=== PATIENT | female | born 1950 | race Caucasian/White ===

== ENCOUNTER 2019-10-05 23:53 | Emergency (ER) | payer OTHER ==
[~2019-10-05] VITALS: Ht 170.2 cm; Wt 76.2 kg
[2019-10-05 23:57] VITALS: BP_SYST 118
--- NOTE | 2019-10-05 23:57 | NUR ---
Patient to ER bed 2 to gown for evaluation. Side rails up. Report given to KRISTAL SWANN.
--- NOTE | 2019-10-05 23:58 | NUR ---
Per EMS reported, started IV 20 G right hand at the scence.
--- NOTE | 2019-10-05 23:59 | NUR ---
Patient BIB EMS. C/O fell and left hip pain x today. Patient states "fell in the garage, no LOC, felt her hip pop out from the socket, seen by PMD for UTI and treated with Macrobid" Hx HTN, Neuropathy. A/O,X4, left hip pain, pain rate 9/10, no radiate pain, place on classroom monitor.
[2019-10-06] MEDS ORDERED: NITR-85 PO (00:12)
[2019-10-06] MEDS ORDERED: AMIT10TA6 PO (00:12)
[2019-10-06] MEDS ORDERED: NEU100 PO (00:12)
[2019-10-06] MEDS ORDERED: LOP600 PO (00:12)
[2019-10-06] MEDS ORDERED: ATEN50TA PO (00:12)
--- NOTE | 2019-10-06 00:12 | NUR ---
Medication reconciliation completed with information provided by patient. Any prior medication reconciliation on file was reviewed and corrected.
--- NOTE | 2019-10-06 00:40 | NUR ---
ER Dr. Aggarwal at bedside examining patient.
--- NOTE | 2019-10-06 00:55 | NUR ---
X- ray at bedside.
[2019-10-06 02:01] VITALS: BP_SYST 121
--- NOTE | 2019-10-06 02:01 | NUR ---
Patient given written and verbal discharge instructions and verbalizes understanding. ER MD discussed with patient the results and treatment provided. Patient in stable condition. ID arm band removed. IV catheter removed intact and dressing applied, no active bleeding. Rx of Ibuprofen given. Patient educated on pain management and to follow up with PMD. Pain Scale 2/10. Opportunity for questions provided and answered. Medication side effect fact sheet provided.
== END 2019-10-06 02:01 | disposition home or self-care (01) ==
LOC: SED 23:53
DX: S73.102A Unspecified sprain of left hip, initial encounter (principal); S70.02XA Contusion of left hip, initial encounter; I10 Essential (primary) hypertension; Z88.8 Allergy status to other drugs, medicaments and biological substances; Z79.899 Other long term (current) drug therapy; W18.39XA Other fall on same level, initial encounter; Y93.89 Activity, other specified; Y92.89 Other specified places as the place of occurrence of the external cause; Y99.8 Other external cause status
CPT/HCPCS: 72170-TC; 73502; 99284

== ENCOUNTER 2022-04-15 06:33 | Inpatient (IN) | payer OTHER ==
[~2022-04-15] VITALS: Ht 170.2 cm; Wt 63.0 kg
[~2022-04-15 06:33] MED LIST: AMIT10TA6 PO; ATEN50TA PO; LOP600 PO; NEU100 PO; NITR-85 PO
[2022-04-15 06:42] VITALS: BP_SYST 137
[2022-04-15] MEDS ORDERED: NS 500 ML IV ONE (06:45)
[2022-04-15] MEDS ORDERED: ONDANSETRON HCL 4 MG/2 ML VIAL IVP ONE (06:45)
[2022-04-15] MEDS ORDERED: DIPHTH,PERTUSS(ACELL),TET VAC 0.5 ML VIAL (Tdap) I.M. ONE (06:45)
[2022-04-15] MEDS ORDERED: MORPHINE 4 MG INJ. 4 MG/ML VIAL IVP ONE (06:45)
--- NOTE | 2022-04-15 06:49 | NUR ---
Patient to ER bed 5 to gown for evaluation. Side rails up. Report given to Jazmin.
--- NOTE | 2022-04-15 06:50 | NUR ---
X-Ray at bedside.
--- NOTE | 2022-04-15 06:56 | NUR ---
Pt to CT via [facility].
--- NOTE | 2022-04-15 07:00 | NUR ---
Pt returned from CT.
--- NOTE | 2022-04-15 07:03 | NUR ---
Pt ALEJANDRO SEAY from home lives with . Pt c/o falling at home and fell on her left side. She uses a cane to ambulate. States now her left hip is in pain. With no activity she states she has no pain but with activity pain is 10/10 non-radiating. No obvious deformity noted. Pt is A&Ox4. Skin intact. Pt has hx of HTN, Hypothyroidism, and Neuropathy. Allergic to Simvastatin. Pt has no chest pain and no sob. Denies n/v. VSS. Bed in lowest position.
--- NOTE | 2022-04-15 07:06 | NUR ---
Dr. Harrington at bedside examining pt.
--- NOTE | 2022-04-15 07:18 | NUR ---
Report given to Jayshree SWANN
[2022-04-15] MEDS ORDERED: ceFAZolin SODIUM 1 GM VIAL ONE (07:30)
[2022-04-15] MEDS ORDERED: fentaNYL CITRATE 250 MCG/5 ML AMP ONE (07:30)
[2022-04-15] MEDS ORDERED: METOCLOPRAMIDE HCL 10 MG/2 ML VIAL ONE (07:30)
[2022-04-15] MEDS ORDERED: ONDANSETRON HCL 4 MG/2 ML VIAL ONE ×2 (07:30→09:22)
[2022-04-15] MEDS ORDERED: MORPHINE SULFATE 10 MG/ML VIAL ONE (07:30)
[2022-04-15] MEDS ORDERED: MIDAZOLAM HCL 5 MG/ML VIAL (VERSED) IV ONE (07:30)
[2022-04-15] MEDS ORDERED: PROPOFOL 200MG/ 20ML VIAL (DIPRIVAN) IV ONE (07:30)
[2022-04-15] MEDS ORDERED: ePHEDrine sulfate 50 MG/ML VIAL ONE (07:30)
[2022-04-15] MEDS ORDERED: LR 1,000 ML IV.SOLN IV ONE (07:30)
--- NOTE | 2022-04-15 07:30 | NUR ---
RECEIVED PT FROM SHREE SUAZO. ASSUMED CARE.
--- NOTE | 2022-04-15 08:00 | NUR ---
# 22 gauge angiocath placed to LFA. Use of asceptic technique. Opsite placed over site. Blood return noted. Flushed with 10 cc of normal saline. No evidence of infiltration noted. Patient tolerated well.
--- NOTE | 2022-04-15 08:01 | NUR ---
LABS AND URINE OBTAINED.
[2022-04-15 08:51] LABS: BASOPHILS % (AUTO) 0.5 % (0.0-2.0); EOSINOPHILS # (AUTO) 0.1 K/uL (0.0-0.4); EOSINOPHILS % (AUTO) 0.9 % (0.0-4.0); HEMATOCRIT 41.1 % (36-48); HEMOGLOBIN 14.1 g/dL (12.0-16.0); LYMPHOCYTES # (AUTO) 1.6 K/uL (1.0-5.5); LYMPHOCYTES % (AUTO) 20.5 % (20.5-51.5); MEAN CORPUSCULAR HEMOGLOBIN 38 pg (27-31); MEAN CORPUSCULAR HGB CONC 34 % (32-36); MEAN CORPUSCULAR VOLUME 109 fL (79.0-98.0); MONOCYTES # (AUTO) 0.5 K/uL (0.0-1.0); NEUTROPHILS # (AUTO) 5.7 K/uL (1.8-7.7); NEUTROPHILS % (AUTO) 72.1 % (40.0-70.0); PLATELET COUNT (AUTO) 164 K/uL (130-430); RED BLOOD CELL COUNT(AUTO) 3.76 MIL/uL (4.2-6.2); RED CELL DISTRIBUTION WIDTH 13.9 % (9.0-15.0); WHITE BLOOD COUNT (AUTO) 7.8 K/uL (4.8-10.8)
[2022-04-15 09:05] LABS: ANION GAP 12 (5-15); CALCIUM 9.4 mg/dL (8.4-11.0); CHLORIDE 105 mmol/L (98-107); CREATININE 0.64 mg/dL (0.55-1.30); GLUCOSE 66 mg/dL (70-99); UREA NITROGEN, BLOOD 9 mg/dL (8-21)
[2022-04-15 09:14] LABS: ALANINE AMINOTRANSFERASE 24 U/L (12-78); ALBUMIN 3.8 g/dL (3.4-4.8); ASPARTATE AMINOTRANSFERASE 42 U/L (10-37); TOTAL BILIRUBIN 0.6 mg/dL (0.0-1.0)
[2022-04-15] MEDS ORDERED: MORPHINE 4 MG INJ. 4 MG/ML VIAL ONE (09:23)
--- NOTE | 2022-04-15 09:24 | NUR ---
MORPHINE 4MG IVP GIVEN FOR L HIP PAIN 12/21, ZOFRAN 4MG IVP GIVEN FOR NAUSEA, NS 1000ML BOLUS INITIATED.
--- NOTE | 2022-04-15 10:44 | NUR ---
CONSULTATION PAGED/CALLED Reason for Consultation: [] cardiac clearance Person Who was Notified: [] Dr Moulton Building And Construction Manager Specialty: [] Dr Moulton Ordering Physician: [] Dr Cano
[2022-04-15] MEDS ORDERED: AMIT10TA6 PO (11:21)
[2022-04-15] MEDS ORDERED: PILO15DR35 LEFT EYE (11:21)
[2022-04-15] MEDS ORDERED: NEU300 PO (11:21)
[2022-04-15] MEDS ORDERED: ATEN50TA PO (11:21)
[2022-04-15] MEDS ORDERED: LOP600 PO (11:21)
[2022-04-15] MEDS ORDERED: LEVO75TA7 PO (11:21)
--- NOTE | 2022-04-15 11:38 | NUR ---
MED REC COMPLETED, COVID OBTAINED, BELONGINGS COMPLETED.
[2022-04-15] MEDS ORDERED: DEXTROSE 50% JECT 50 ML DISP.SYRIN ONE (17:06)
--- NOTE | 2022-04-15 19:21 | NUR ---
ENDORSED ALL CARE TO SHREE MOODY. ALL QUESTIONS AND CONCERNS ADDRESSED.
--- NOTE | 2022-04-15 19:33 | NUR ---
Admit bed requested Patient will be admitted to care of . Admitted to TELE unit. Diagnosis LEFT HIP FRACTURE Inpatient (Yes or No) YES Observation (Yes or No) NO Orientation concerns or request close to nursing station (Yes or No) NO Covid Status NEGATIVE On vent or bipap NO Isolation requirements NO Needs a sitter NO From Home (Yes or if No enter name of facility) YES Requires Dialysis (Yes or No) NO Med Rec Completed (Yes of No) YES
--- NOTE | 2022-04-15 19:56 | NUR ---
Assumed care of pt and pt is in bed resting with no s/s of distress. Used bed walton for bathroom. Maci care provided. A&Ox4, Skin intact. Pt is on 4L NC placed by previous RN and O2 saturation is at 94%. Pt alvarado sno SOB. On RA pt is at 91% but has no c/o. Bed in lowest position.
--- NOTE | 2022-04-15 21:25 | NUR ---
ADMISSION NOTE Received patient from ER via wilfred, received report from SHREE Wu. Patient admitted with diagnosis of Left hip fracture. Patient oriented to hospital routine, call light, toileting and safety-patient verbalized understanding.
--- NOTE | 2022-04-15 21:30 | NUR ---
Initial RN notes Pt AAOx4, VSS, no s/s distress noted. O2 sat 91-93% on 2L NC. IV saline lock L. FA 22G clear and patent. L. lower extremity neurovasc check intact. Pt able to wiggle toes and move extrremities. Oriented pt to call light use, verbalized understanding. To monitor.
--- NOTE | 2022-04-15 21:45 | NUR ---
Patient will be admitted to care of Maricruz SWANN. Admitted to TELE unit. Will go to room 109A. Belongings list completed. Complete and up to date summary report printed. SBAR report to be given at bedside with opportunity for questions.
[2022-04-15 21:48] VITALS: BP_SYST 140
--- NOTE | 2022-04-15 22:52 | NUR ---
Paged Pt asking for pain med. Paged Dr. Cano for pain med order.
--- NOTE | 2022-04-15 22:53 | NUR ---
Stephanie Cano s/w Mira
--- NOTE | 2022-04-15 22:55 | NUR ---
called back Received call back from Dr. Cano and orders received for Percocet for pain and Zofran. Will carry out.
[2022-04-15] MEDS ORDERED: ACETAMINOPHEN 325 MG TABLET PO PRN (23:15)
[2022-04-15] MEDS ORDERED: ONDANSETRON HCL 4 MG/2 ML VIAL IVP PRN (23:15)
[2022-04-15] MEDS ORDERED: OXYCODONE/ACETAMINOPHEN *10*mg/325 mg TABLET PO PRN (23:15)
--- NOTE | 2022-04-16 00:17 | NUR ---
CONSULTATION PAGED/CALLED Reason for Consultation: HIP FX Person Who was Notified: MEI Consulting Physician: PRANAY CANO IS MIXER OPERATOR HOT METAL Knife Setter Assembler Specialty: Ordering Physician: LEVI
[2022-04-16] MEDS: OXYCODONE/ACETAMINOPHEN 5-325 TABLET PO PRN (00:26)
[2022-04-16 00:30] VITALS: BP_SYST 135
--- NOTE | 2022-04-16 06:15 | NUR ---
Closing notes Pt alert, awake, no s/s distress, no c/o pain at this time. Bed low, locked, siderails up x3, alarm on. Call light within reach. Awaiting MD consults. To endorse care to AM nurse.
--- NOTE | 2022-04-16 08:00 | NUR ---
RECEIVE PATIENT FROM PM NURSE, ALERT AND ORIENTED, ABLE TO VERBALIZE NEEDS, NO C/O PAIN OR DISCOMFORT AT THIS TIME, WILL ASSUME ALL CARE OF PATIENT
[2022-04-16] MEDS: GABAPENTIN 100 MG CAPSULE PO SCH ×2 (09:21→20:59)
[2022-04-16] MEDS: GEMFIBROZIL 600 MG TABLET (LOPID) PO SCH ×2 (09:21→20:59)
[2022-04-16] MEDS: LEVOTHYROXINE SODIUM 0.075 MG TABLET PO SCH (09:21)
[2022-04-16] MEDS: PILOCARPINE 1% OPHTHALMIC DROPS (ISOPTO CARPINE) OP SCH ×2 (09:22→21:00)
[2022-04-16] MEDS ORDERED: ATENOLOL 25 MG TABLET(TENORMIN) PO ONE (10:00)
[2022-04-16 11:29] VITALS: BP_SYST 152
[2022-04-16 15:28] VITALS: BP_SYST 168
--- NOTE | 2022-04-16 15:30 | NUR ---
BLADDER SCAN POST VOID 24ML, BLADDER NON DISTENDED, PER DR. SIMS NO ALBERT NEEDED AT THIS TIME
--- NOTE | 2022-04-16 16:00 | NUR ---
PATIENT BP 158/90, REQUEST PRN MEDICATION FOR BP FROM MD IF NEEDED, WILL RE CHECK
--- NOTE | 2022-04-16 17:46 | NUR ---
URINE SAMPLE COLLECTED
[2022-04-16 19:51] LABS: BILIRUBIN,URINE NEGATIVE (NEGATIVE); BLOOD, URINE 1+ (NEGATIVE); CLARITY/URINE CLEAR (CLEAR); COLOR,URINE YELLOW (YELLOW); GLUCOSE,URINE NEGATIVE (NEGATIVE); KETONES,URINE NEGATIVE (NEGATIVE); LEUKOCYTE ESTERASE ,URINE NEGATIVE (NEGATIVE); NITRITE, URINE NEGATIVE (NEGATIVE); PROTEIN URINE NEGATIVE (NEGATIVE); UROBILINOGEN,URINE 0.2 (0.2-1.0)
[2022-04-16 20:00] VITALS: BP_SYST 161
[2022-04-16 20:00] LABS: BACTERIA,URINE None Seen /HPF (None Seen); MUCUS,URINE None Seen /LPF (None Seen); WBC,URINE NONE SEEN /HPF (0-3)
[2022-04-17] VITALS: BP_SYST 132
[2022-04-17 07:29] LABS: BASOPHILS % (AUTO) 0.7 % (0.0-2.0); EOSINOPHILS # (AUTO) 0.2 K/uL (0.0-0.4); EOSINOPHILS % (AUTO) 2.5 % (0.0-4.0); HEMOGLOBIN 13.3 g/dL (12.0-16.0); LYMPHOCYTES # (AUTO) 1.5 K/uL (1.0-5.5); LYMPHOCYTES % (AUTO) 23.9 % (20.5-51.5); MEAN CORPUSCULAR HEMOGLOBIN 38 pg (27-31); MEAN CORPUSCULAR HGB CONC 35 % (32-36); MEAN CORPUSCULAR VOLUME 108 fL (79.0-98.0); MONOCYTES # (AUTO) 0.6 K/uL (0.0-1.0); MONOCYTES % (AUTO) 9.2 % (1.7-9.3); NEUTROPHILS # (AUTO) 3.9 K/uL (1.8-7.7); NEUTROPHILS % (AUTO) 63.7 % (40.0-70.0); PLATELET COUNT (AUTO) 151 K/uL (130-430); RED BLOOD CELL COUNT(AUTO) 3.53 MIL/uL (4.2-6.2); RED CELL DISTRIBUTION WIDTH 13.4 % (9.0-15.0); WHITE BLOOD COUNT (AUTO) 6.2 K/uL (4.8-10.8)
[2022-04-17 08:41] LABS: ANION GAP 7 (5-15); CALCIUM 8.4 mg/dL (8.4-11.0); CHLORIDE 101 mmol/L (98-107); CREATININE 0.63 mg/dL (0.55-1.30); FREE T4 (FREE THYROXINE) 0.9 ng/dl (0.8-1.5); GLUCOSE 84 mg/dL (70-99); THYROID STIMULATING HORMONE 2.47 uIu/mL (0.36-3.74); UREA NITROGEN, BLOOD 9 mg/dL (8-21)
[2022-04-17] MEDS: PILOCARPINE 1% OPHTHALMIC DROPS (ISOPTO CARPINE) OP SCH ×2 (09:00→21:00)
[2022-04-17] MEDS: GABAPENTIN 100 MG CAPSULE PO SCH ×2 (09:48→19:56)
[2022-04-17] MEDS: GEMFIBROZIL 600 MG TABLET (LOPID) PO SCH ×2 (09:48→19:56)
[2022-04-17] MEDS: LEVOTHYROXINE SODIUM 0.075 MG TABLET PO SCH (09:48)
[2022-04-17] MEDS: ATENOLOL 25 MG TABLET(TENORMIN) PO SCH (09:49)
[2022-04-17 11:55] VITALS: BP_SYST 135
--- NOTE | 2022-04-17 13:23 | NUR ---
FOOD PATIENT HAD A MC MUFFIN AT 12:00 AND A CUP OF COFEE AT 1PM. CALLED AND LM TO DR KINNEY"S CP TO NOTIFY
[2022-04-17 16:58] VITALS: BP_SYST 150
--- NOTE | 2022-04-17 19:45 | NUR ---
Spoke to dr. granger, patient will have surgery in am 04/18
[2022-04-17 20:00] VITALS: BP_SYST 150
--- NOTE | 2022-04-18 00:27 | NUR ---
Patient in bed. No acute distress noted. No complaint of pain or discomfort. Will continue to monitor.
[2022-04-18 04:00] VITALS: BP_SYST 104
--- NOTE | 2022-04-18 06:36 | NUR ---
Chg bath given. Linen changed and consent signed.
--- NOTE | 2022-04-18 07:28 | NUR ---
TO OR Pt left floor via bed to OR in no distress.
[2022-04-18] MEDS: PILOCARPINE 1% OPHTHALMIC DROPS (ISOPTO CARPINE) OP SCH ×2 (09:00→21:00)
[2022-04-18] MEDS: LEVOTHYROXINE SODIUM 0.075 MG TABLET PO SCH (09:00)
[2022-04-18] MEDS ORDERED: NALOXONE HCL 0.4 MG/ML AMP (NARCAN) IVP PRN (09:15)
[2022-04-18] MEDS ORDERED: ONDANSETRON HCL 4 MG/2 ML VIAL IVP PRN (09:15)
[2022-04-18] MEDS ORDERED: ASPI-1393 PO (09:28)
[2022-04-18] MEDS ORDERED: IBUP-1969 PO (09:28)
[2022-04-18] MEDS ORDERED: HYDR-3917 PO (09:28)
[2022-04-18 10:20] VITALS: BP_SYST 118
--- NOTE | 2022-04-18 10:20 | NUR ---
PT BACK FROM OR Received report from Renata RN from PACU, received pt AAOx4, no s/s resp distress, no c/o pain or discomfort. Dressing to left hip clean, dry and intact with ice pack in place. Neurovascular check completed. Plan of care for the day reviewed with pt and pt's , pain management, skin and safety discussed-teach back done. Call light within reach.
--- NOTE | 2022-04-18 11:50 | NUR ---
Trim Machine Operator NURSING ASSISTANTS TEACHER was asked to speak to pts. as he was upset that noone has spoken to him. NURSING ASSISTANTS TEACHER asked Tech to have speak to about pts./'s health. NURSING ASSISTANTS TEACHER went to meet with pt.s , who stated he has yet to speak to any doctors about his and her medical condition. stated he has purchased a bed side commode, but will need a walker for his once she comes home. NURSING ASSISTANTS TEACHER shared with that the case mangr will received discharge planning orders from pts. doctor and insurance will also play a role in services provided. As NURSING ASSISTANTS TEACHER was leaving , was being brought back into her room from recovery. NURSING ASSISTANTS TEACHER shared with MARLON Nino that pt. has a bedside commode and will need a walker. NURSING ASSISTANTS TEACHER will remain available as needed.
[2022-04-18] MEDS: GABAPENTIN 100 MG CAPSULE PO SCH ×2 (12:26→20:08)
[2022-04-18] MEDS: GEMFIBROZIL 600 MG TABLET (LOPID) PO SCH ×2 (12:27→20:08)
[2022-04-18] MEDS: ATENOLOL 25 MG TABLET(TENORMIN) PO SCH (12:28)
--- NOTE | 2022-04-18 15:31 | NUR ---
ROUNDS Pt resting quietly in bed with no s/s resp distress, no c/o pain or discomfort. Pt voided in bed walton. Informed pt that the physical therapist will see her in the morning-pt verbalized her understanding. Pt c/o feeling itchy where the SCDs are, she asked for Benadryl-will check on Benadryl. All precautions remain in place. Call light within reach.
[2022-04-18 15:46] VITALS: BP_SYST 139
--- NOTE | 2022-04-18 15:57 | NUR ---
Discharge Planning: DCP faxed pt referral to [facility] [phone] for FWW, Assisted [phone] DCP to follow up. Addendum: 04/18/22 at 1709 by Geri GARCIA Assisted [phone] Accepted, DCP will follow up [facility] [phone] for FWW.
[2022-04-18 16:30] VITALS: BP_SYST 139
[2022-04-18] MEDS ORDERED: DIPHENHYDRAMINE HCL 25 MG CAPSULE PO PRN (16:30)
--- NOTE | 2022-04-18 17:15 | NUR ---
ITCHINESS/MED DID NOT SAVE ON COMPUTER Pt c/o itchiness to legs, pt given Benadryl as ordered by MD. Not that pt and medication scanned but computer did not save it.
--- NOTE | 2022-04-18 19:19 | NUR ---
CLOSING NOTE Pt sitting up in bed with no s/s resp distress, no c/o pain or discomfort. BLE SCDs in place, needs met. Endorsed care to field installer nurse. All precautions remain in place. Call light within reach.
[2022-04-18 20:00] VITALS: BP_SYST 134
[2022-04-18] MEDS: OXYCODONE/ACETAMINOPHEN 5-325 TABLET PO PRN (20:09)
--- NOTE | 2022-04-18 21:46 | NUR ---
Patient in bed. No acute distress noted. No complaint of pain or discomfort. Will continue to monitor.
[2022-04-19 00:58] VITALS: BP_SYST 125
[2022-04-19] MEDS: OXYCODONE/ACETAMINOPHEN 5-325 TABLET PO PRN ×2 (05:41→15:23)
[2022-04-19] MEDS ORDERED: LEVOTHYROXINE SODIUM 0.075 MG TABLET PO SCH (07:00)
--- NOTE | 2022-04-19 08:00 | NUR ---
AM NOTES PT. HAVING BREAKFAST, ALERT AND ORIENTED, DENIES PAIN, LEFT HIP DRESSING DRY AND INTACT, SCD BILATERAL LEGS, NEUROVASCULAR CHECKED DONE, NO DEFICIT NOTED. WAITING FOR PHYSICAL THERAPY.
[2022-04-19 08:06] VITALS: BP_SYST 127
[2022-04-19] MEDS: PILOCARPINE 1% OPHTHALMIC DROPS (ISOPTO CARPINE) OP SCH (09:00)
[2022-04-19] MEDS: GEMFIBROZIL 600 MG TABLET (LOPID) PO SCH (09:30)
[2022-04-19] MEDS: ATENOLOL 25 MG TABLET(TENORMIN) PO SCH (09:31)
[2022-04-19] MEDS: GABAPENTIN 100 MG CAPSULE PO SCH (09:39)
--- NOTE | 2022-04-19 10:00 | NUR ---
P.THERAPY AMBULATE BY P.THERAPY, USED A WALKER, AT BEDSIDE. NEEDS HOME HEALTH FOR P.THERAPY, AND WALKER FOR HOME USE.
--- NOTE | 2022-04-19 10:20 | NUR ---
Discharge Planning: DCP followed up with pt referral to [facility] [phone] for FWW, reqesting a signed dc order to process. DCP will follow up Addendum: 04/19/22 at 1028 by Geri Quintero DP Assisted [phone] Accepted Addendum: 04/19/22 at 1354 by Geri Quintero DP DCP faxed signed FWW order to [facility] [phone]. DCP to follow up Addendum: 04/19/22 at 1535 by Geri GARCIA CHAVO spoke to patient and spouse making them both aware I needed to have doctor physically sign FWW order and updated clinical per request. ALEXIS also made them both aware when I was given a eta I would make them aware. CHAVO received a call eta for delivery would be btw 4pm-8pm. CHAVO went to patients room to make aware, CHAVO was told went to buy a walker. ALEXIS made CM aware.
[2022-04-19 11:07] VITALS: BP_SYST 97
[2022-04-19 12:00] VITALS: BP_SYST 97
--- NOTE | 2022-04-19 12:00 | NUR ---
FWW FOLLOW UP HOME HEALTH AND FWW, STILL WAITING TO DELIVER AT BEDSIDE.
--- NOTE | 2022-04-19 14:39 | NUR ---
SEEN BY DR SIMS SEEN BY MD, FOR DISCHARGE TODAY, DR KINNEY CAME TO SEE PATIENT THIS AM, CLEARED FOR DISCHARGE. WAITING FOR FWW.
--- NOTE | 2022-04-19 15:00 | NUR ---
CARDIOLOGY PHYSICIAN ASSISTANT RE FWW FOLLOW UP FWW, WILL DELIVER BETWEEN 4-8 PM. PATIENT DOESN'T WANT TO WAIT, WENT TO [facility] TO BUY A NEW WALKER.
[2022-04-19 16:00] VITALS: BP_SYST 100
--- NOTE | 2022-04-19 16:25 | NUR ---
DISCHARGE BOUGHT A NEW WALKER AT [facility], SET UP BY KELLEY. UNABLE TO NEW WALKER TO ARRIVE. DC INSTRUCTION INSTRUCTED TO PATIENT INCLUDING NEW MEDS, HOME MEDS, HOME HEALTH PHaydeeTHERAPY AND FF-UP WITH . LEFT HIP INCISION DRESSING CHANGED, INCISION SITE CLEAN, DRY, NO SIGN OF INFECTION. NEW DRESSING APPLIED. HOME VIA W/C ASSISTED BY STAFF TO SIT IN HER CAR.
[2022-04-20] MEDS ORDERED: ASPIRIN 81 MG TAB.CHEW PO SCH (09:00)
== END 2022-04-19 16:25 | disposition home health service (06) | DRG 482 ==
LOC: SED 06:33 → STU 10:09 → SMU 21:45
PROVIDERS: ADMIT Internal Medicine; ATTEND Internal Medicine
PROC: 0QS704Z Reposition Left Upper Femur with Internal Fixation Device, Open Approach (ICD-10-PCS; principal; 2022-04-15)
DX: S72.012A Unspecified intracapsular fracture of left femur, initial encounter for closed fracture (principal); E78.5 Hyperlipidemia, unspecified; F17.200 Nicotine dependence, unspecified, uncomplicated; I10 Essential (primary) hypertension; G62.9 Polyneuropathy, unspecified; W18.39XA Other fall on same level, initial encounter; Z20.822 Contact with and (suspected) exposure to COVID-19; E03.9 Hypothyroidism, unspecified; M16.11 Unilateral primary osteoarthritis, right hip; Z88.8 Allergy status to other drugs, medicaments and biological substances; Y93.89 Activity, other specified; Y92.89 Other specified places as the place of occurrence of the external cause; Y99.8 Other external cause status
CPT/HCPCS: 36415; 70450-TC; 71045; 72170-TC; 72192-TC; 73502; 73721; 76000; 76376; 80048; 80053; 81000; 84439; 84443; 84484; 85025; 85610-TC; 85730-TC; 86886; 86900; 86901; 90715; 93005; 96361; 96374; 96375; 99285; C1713; C1769; G0378; J0690; J2250; J2270; J2405; J2704; J2765; J3010; J7030; J7120; Q0163

== ENCOUNTER 2022-07-20 09:56 | Emergency (ER) | payer OTHER ==
[~2022-07-20] VITALS: Ht 170.2 cm; Wt 67.6 kg
[2022-07-20 09:56] VITALS: BP_SYST 152
[~2022-07-20 09:56] MED LIST changes: +ASPI-1393 PO; +HYDR-3917 PO; +IBUP-1969 PO; +LEVO75TA7 PO; +NEU300 PO; -NITR-85 PO; +PILO15DR35 LEFT EYE
--- NOTE | 2022-07-20 09:57 | NUR ---
BROUGHT IN BY [facility] AND PLACED IN BED #5, TRIAGED. REPORT GIVEN TO JESSE
[2022-07-20 10:09] VITALS: BP_SYST 126
[2022-07-20] MEDS ORDERED: KETOROLAC TROMETHAMINE 30 MG VIAL IM ONE (10:45)
--- NOTE | 2022-07-20 11:30 | NUR ---
Knee Immobolizer applied to LEFT KNEE. pulse noted. Capillary refill < seconds. Patient has ability to move toes. Has sensation present to affected site. Skin color within normal limits.
[2022-07-20] MEDS ORDERED: IBUP-1969 PO (11:39)
--- NOTE | 2022-07-20 11:45 | NUR ---
PATIENT RESTING COMFORTABLY IMMOBILIZER PLACE ON LEFT KNEE AWAITING RIDE HOME
--- NOTE | 2022-07-20 12:14 | NUR ---
PATIENT D/C ACCORDINGLY WILL FOLLOW UP WITH PRIMARY CARE OUT PATIENT. PT NOT IN ANY RESPIRATORY DISTRESS AMBULATED OUT OF ER.
--- NOTE | 2022-07-20 12:16 | NUR ---
Patient given written and verbal discharge instructions and verbalizes understanding. ER MD discussed with patient the results and treatment provided. Patient in stable condition. ID arm band removed. IV catheter removed intact and dressing applied, no active bleeding. Rx of IBUPROFEN given. Patient educated on pain management and to follow up with PMD. Pain Scale . Opportunity for questions provided and answered. Medication side effect fact sheet provided.
== END 2022-07-20 12:16 | disposition home or self-care (01) ==
LOC: SED 09:56
DX: S83.92XA Sprain of unspecified site of left knee, initial encounter (principal); I10 Essential (primary) hypertension; Z88.8 Allergy status to other drugs, medicaments and biological substances; Z79.899 Other long term (current) drug therapy; W01.0XXA Fall on same level from slipping, tripping and stumbling without subsequent striking against object, initial encounter; Y93.89 Activity, other specified; Y92.89 Other specified places as the place of occurrence of the external cause; Y99.8 Other external cause status
CPT/HCPCS: 99283; 96374; 29505; 73564; J1885